=== PATIENT | female | born 1955 | race African-American/Black ===

== ENCOUNTER 2021-05-22 03:26 | Emergency (ER) | payer SELFPAY ==
[~2021-05-22] VITALS: Ht 170.2 cm; Wt 96.0 kg
[2021-05-22] MEDS ORDERED: EPINEPHRINE 1:1000 1 MG/ML AMP IM ONE (04:00)
[2021-05-22] MEDS ORDERED: DIPHENHYDRAMINE 50MG/ML VIAL IV ONE (04:00)
[2021-05-22] MEDS ORDERED: METHYLPREDNISOLONE SOD SUCC 125 MG/2 ML VIAL IV ONE (04:00)
[2021-05-22] MEDS ORDERED: FAMOTIDINE 20MG TABLET PO ONE (04:00)
[2021-05-22] MEDS ORDERED: EPIN0.3P3 IM (04:40)
[2021-05-22] MEDS ORDERED: B25 PO (04:40)
[2021-05-22 06:00] VITALS: BP 124/79
== END 2021-05-22 06:26 | disposition home or self-care (01) ==
LOC: ER 03:26
DX: T78.1XXA Other adverse food reactions, not elsewhere classified, initial encounter (principal); L50.0 Allergic urticaria; R20.2 Paresthesia of skin; L29.9 Pruritus, unspecified; X58.XXXA Exposure to other specified factors, initial encounter
CPT/HCPCS: 96372; 96374; 96375; 99291; J1200; J2930; J3490; 99284